=== PATIENT | female | born 1940 | race Two or more races ===

== ENCOUNTER 2021-02-14 09:27 | Outpatient (CLI) | payer OTHER | END 2021-02-14 09:32 | disposition home or self-care (01) | LOC: RAD 09:27 | PROVIDERS: ATTEND Pathology Anatomic Pathology & Clinical Pathology | DX: D34 Benign neoplasm of thyroid gland (principal); E04.8 Other specified nontoxic goiter ==

== ENCOUNTER 2021-02-14 14:09 | Outpatient (CLI) | payer OTHER | END 2021-02-14 14:12 | disposition home or self-care (01) | LOC: PPH VACUNA 14:09 | PROVIDERS: ATTEND Emergency Medicine Pediatric Emergency Medicine | DX: Z23 Encounter for immunization (principal) ==